=== PATIENT | female | born 1995 | race Caucasian/White ===

== ENCOUNTER 2023-01-30 10:21 | Emergency (ER) | payer OTHER ==
[2023-01-30 10:44] VITALS: BP 109/63; PULSE 96; RESP 18; TEMP 97.3; BMI 24.2
[2023-01-30] MEDS ORDERED: MAG HYDROX/AL HYDROX/SIMETH -MYLANTA- ORAL SUSPENSION PO ONE (12:38)
[2023-01-30] MEDS ORDERED: FAMOTIDINE 20 MG TABLET PO ONE (12:38)
[2023-01-30] MEDS ORDERED: PANTOPRAZOLE 40 MG TABLET PO ONE ×2 (12:38→12:48)
[2023-01-30] MEDS ORDERED: FAMOTIDINE 20 MG TABLET ONE (12:47)
[2023-01-30] MEDS ORDERED: MAG HYDROX/AL HYDROX/SIMETH 30 ML UNIT-DOSE CUP ONE (12:47)
[2023-01-30 13:12] LABS: BASO % 0.3 % (0-2.0); EOS % 1.1 % (0-4.5); HEMATOCRIT 40.3 % (32.4-45.2); HEMOGLOBIN 13.6 GM/dL (10.7-15.3); LYMPH % 27.1 % (8-40); MCH 29.7 pg (25.7-33.7); MCHC 33.7 g/dl (32.0-36.0); MEAN CELL VOLUME 88.2 fl (80-96); MEAN PLT VOLUME 8.4 fl (7.5-11.1); NEUT % 60.5 % (42.8-82.8); PLATELET COUNT 237 10^3/uL (134-434); RBC 4.57 M/mm3 (3.60-5.2); RDW 12.7 % (11.6-15.6); WHITE BLOOD COUNT 5.9 K/mm3 (4.0-10.0)
[2023-01-30 13:31] LABS: CALCIUM 9.2 mg/dL (8.5-10.1)
[2023-01-30 13:32] LABS: BLOOD UREA NITROGEN 13.6 mg/dL (7-18)
[2023-01-30 13:36] LABS: CREATININE 0.8 mg/dL (0.55-1.3)
== END 2023-01-30 13:54 | disposition home or self-care (01) ==
LOC: EDBD 10:21 → JER 10:21
DX: R07.0 Pain in throat (principal); K21.00 Gastro-esophageal reflux disease with esophagitis, without bleeding
CPT/HCPCS: 36415; 80048; 85025; 87651; 93005; 93010; 99284-25